=== PATIENT | female | born 1965 | race Caucasian/White ===

== ENCOUNTER 2016-09-14 08:15 | Emergency (ER) | payer OTHER ==
[~2016-09-14] VITALS: Ht 167.6 cm; Wt 82.5 kg
[2016-09-14 09:20] LABS: PLATELET COUNT 261 x10^3mcL (130-400)
[2016-09-14 09:26] LABS: BASOPHIL % 0 % (0-2); RED CELL DISTRIBUTION WIDTH 15.7 % (11.5-14.5)
[2016-09-14 09:30] LABS: CARBON DIOXIDE 28.2 mmol/L (21-32); CREATININE SERUM 1.3 mg/dL (0.6-1.0); POTASSIUM SERUM 3.8 mmol/L (3.5-5.1)
[2016-09-14 09:34] LABS: ALBUMIN 4.6 g/dL (3.4-5.0)
[2016-09-14 09:35] LABS: TOTAL PROTEIN, SERUM 8.8 g/dL (6.4-8.2)
[2016-09-14 10:12] LABS: UA SPECIFIC GRAVITY >=1.030 (1.005-1.035); microscopic required? YES; urine erythrocyte NEGATIVE (NEGATIVE)
[2016-09-14 11:53] VITALS: BP 122/77
== END 2016-09-14 12:10 | disposition home or self-care (01) ==
LOC: ED 08:15
PROVIDERS: Emergency Medicine
DX: N18.3 Chronic kidney disease, stage 3 (moderate) (principal); E78.00 Pure hypercholesterolemia, unspecified; K82.8 Other specified diseases of gallbladder; Z90.710 Acquired absence of both cervix and uterus; Z85.42 Personal history of malignant neoplasm of other parts of uterus; Z92.21 Personal history of antineoplastic chemotherapy
CPT/HCPCS: 83880; J1885; J7030

== ENCOUNTER 2017-03-26 15:05 | Inpatient (IN) | payer OTHER ==
[~2017-03-26] VITALS: Ht 163.8 cm; Wt 81.3 kg
[2017-03-26 16:18] LABS: BASOPHIL % 0.7 % (0-2); PLATELET COUNT 468 x10^3mcL (130-400); RED CELL DISTRIBUTION WIDTH 15.1 % (11.5-14.5)
[2017-03-26 16:25] LABS: CALCIUM 9.3 mg/dL (8.5-10.1); CARBON DIOXIDE 26.1 mmol/L (21-32); CHLORIDE SERUM 102 mmol/L (98-107); CREATININE SERUM 0.8 mg/dL (0.6-1.0); GFR1 > 60 mL/min; GLUCOSE SERUM 94 mg/dL (74-106); POTASSIUM SERUM 3.1 mmol/L (3.5-5.1); SODIUM SERUM 140 mmol/L (136-145)
[2017-03-26 16:36] LABS: ALKALINE PHOSPHATASE 238 U/L (46-116); ALT/SGPT 31 U/L (14-59); AST/SGOT 30 U/L (15-37); BILIRUBIN TOTAL 0.47 mg/dL (0.20-1.00); TOTAL PROTEIN, SERUM 7.7 g/dL (6.4-8.2)
[2017-03-26 16:40] LABS: ALBUMIN 2.9 g/dL (3.4-5.0)
[2017-03-26 17:37] LABS: CK-MB 1.1 ng/mL (0-3.6)
[2017-03-26] MEDS ORDERED: CIPRO500 MG PO (18:15)
[2017-03-26] MEDS ORDERED: PHECLUD (18:15)
[2017-03-26] MEDS ORDERED: IBUPROFEN IB100 MG (18:15)
[2017-03-26 19:40] LABS: T3 TOTAL 1.05 ng/mL
[2017-03-26 19:41] LABS: MAGNESIUM 1.9 mg/dL (1.8-2.4); PHOSPHOROUS 2.7 mg/dL (2.5-4.9)
[2017-03-26 19:56] LABS: FREE T4 1.51 ng/dL (0.76-1.46); FREE THYROXINE INDEX 4.3 ug/dL (1.4-4.5); T4(THYROXINE) 12.9 ug/dL (4.7-13.3)
[2017-03-26 20:00] VITALS: BP 138/74
[2017-03-26 20:02] VITALS: Ht 163.8 cm; Wt 81.3 kg
[2017-03-26 20:05] VITALS: BP 138/74
[2017-03-26 20:47] VITALS: BP 138/74
[2017-03-26 21:19] LABS: RED BLOOD CELLS 3.93 M/mm3 (4.10-5.10)
[2017-03-26 21:30] LABS: IRON 27 ug/dL (50-170); TOTAL IRON BINDING CAPACITY 177 ug/dL (250-450)
[2017-03-27 05:53] VITALS: BP 136/70
[2017-03-27 06:43] LABS: BASOPHIL % 0.2 % (0-2)
[2017-03-27 06:45] LABS: PLATELET COUNT 420 x10^3mcL (130-400); RED CELL DISTRIBUTION WIDTH 14.8 % (11.5-14.5)
[2017-03-27 06:48] LABS: CHLORIDE SERUM 105 mmol/L (98-107); CREATININE SERUM 0.8 mg/dL (0.6-1.0); GFR1 > 60 mL/min; GLUCOSE SERUM 85 mg/dL (74-106); HDL CHOLESTEROL 48 mg/dL (40-60); MAGNESIUM 1.9 mg/dL (1.8-2.4); PHOSPHOROUS 2.4 mg/dL (2.5-4.9); POTASSIUM SERUM 3.7 mmol/L (3.5-5.1); SODIUM SERUM 142 mmol/L (136-145); TRIGLYCERIDES 139 mg/dL (<150)
[2017-03-27 07:05] LABS: CHOLESTEROL 210 mg/dL (<200); CHOLESTEROL/HDL RATIO 4.4
[2017-03-27 09:10] VITALS: BP 135/78
[2017-03-27 14:51] LABS: microscopic required? NO
[2017-03-27 14:57] LABS: UA SPECIFIC GRAVITY 1.015 (1.005-1.035); urine erythrocyte NEGATIVE (NEGATIVE)
[2017-03-27 15:20] LABS: AMPHETAMINE QUAL UR NONE DETECTED (NEG <=1000)
[2017-03-27 16:46] VITALS: BP 146/79
[2017-03-27 19:30] VITALS: BP 106/67
[2017-03-28] VITALS (14 sets, daily range): BP systolic 101–144; BP diastolic 65–89
[2017-03-28 07:13] LABS: BASOPHIL % 0.1 % (0-2)
[2017-03-28 07:14] LABS: PLATELET COUNT 429 x10^3mcL (130-400); RED CELL DISTRIBUTION WIDTH 15.1 % (11.5-14.5)
[2017-03-28 07:46] LABS: CALCIUM 9.3 mg/dL (8.5-10.1); CARBON DIOXIDE 26.3 mmol/L (21-32); CHLORIDE SERUM 105 mmol/L (98-107); CREATININE SERUM 0.8 mg/dL (0.6-1.0); GFR1 > 60 mL/min; GLUCOSE SERUM 97 mg/dL (74-106); MAGNESIUM 1.7 mg/dL (1.8-2.4); PHOSPHOROUS 3.1 mg/dL (2.5-4.9); POTASSIUM SERUM 3.7 mmol/L (3.5-5.1); SODIUM SERUM 142 mmol/L (136-145)
[2017-03-29 05:33] LABS: BASOPHIL % 0.3 % (0-2)
[2017-03-29 05:39] VITALS: BP 119/73
[2017-03-29 05:42] LABS: PLATELET COUNT 404 x10^3mcL (130-400); RED CELL DISTRIBUTION WIDTH 15.3 % (11.5-14.5)
[2017-03-29 05:49] LABS: CALCIUM 9.1 mg/dL (8.5-10.1); CARBON DIOXIDE 26.1 mmol/L (21-32); CHLORIDE SERUM 102 mmol/L (98-107); CREATININE SERUM 0.8 mg/dL (0.6-1.0); GFR1 > 60 mL/min; GLUCOSE SERUM 94 mg/dL (74-106); MAGNESIUM 1.6 mg/dL (1.8-2.4); PHOSPHOROUS 3.3 mg/dL (2.5-4.9); POTASSIUM SERUM 3.7 mmol/L (3.5-5.1); SODIUM SERUM 140 mmol/L (136-145)
[2017-03-29 08:00] VITALS: BP 155/91
[2017-03-29] MEDS ORDERED: LIPI10 PO (09:57)
[2017-03-29 13:00] VITALS: BP 148/88
[2017-03-29 17:20] VITALS: BP 130/77
[2017-03-29 20:58] VITALS: BP 151/78
[2017-03-30 05:25] VITALS: BP 140/84
[2017-03-30 07:05] LABS: BASOPHIL % 0.3 % (0-2)
[2017-03-30 07:12] LABS: CALCIUM 9.3 mg/dL (8.5-10.1); CARBON DIOXIDE 29.1 mmol/L (21-32); CHLORIDE SERUM 100 mmol/L (98-107); CREATININE SERUM 0.7 mg/dL (0.6-1.0); GFR1 > 60 mL/min; GLUCOSE SERUM 82 mg/dL (74-106); MAGNESIUM 1.8 mg/dL (1.8-2.4); PHOSPHOROUS 2.9 mg/dL (2.5-4.9); POTASSIUM SERUM 3.9 mmol/L (3.5-5.1); SODIUM SERUM 139 mmol/L (136-145)
[2017-03-30 07:18] LABS: PLATELET COUNT 433 x10^3mcL (130-400); RED CELL DISTRIBUTION WIDTH 15.3 % (11.5-14.5)
[2017-03-30 10:11] VITALS: BP 121/82
[2017-03-30 13:20] VITALS: BP 130/78
[2017-03-30 17:14] VITALS: BP 141/73
[2017-03-30 17:39] VITALS: BP 141/73
[2017-03-30 17:40] VITALS: BP 141/73
== END 2017-03-30 18:48 | disposition home or self-care (01) | DRG 180 ==
LOC: ED 15:05 → DU 18:28
PROVIDERS: Emergency Medicine; Family Medicine
PROC: 0BBK3ZX Excision of Right Lung, Percutaneous Approach, Diagnostic (ICD-10-PCS; principal; 2017-03-28)
DX: C78.02 Secondary malignant neoplasm of left lung (principal); E43 Unspecified severe protein-calorie malnutrition; M84.58XA Pathological fracture in neoplastic disease, other specified site, initial encounter for fracture; J90 Pleural effusion, not elsewhere classified; C78.01 Secondary malignant neoplasm of right lung; E83.39 Other disorders of phosphorus metabolism; E87.6 Hypokalemia; D64.9 Anemia, unspecified; Z68.31 Body mass index [BMI] 31.0-31.9, adult; Z85.42 Personal history of malignant neoplasm of other parts of uterus; Z90.710 Acquired absence of both cervix and uterus; E66.01 Morbid (severe) obesity due to excess calories; C80.1 Malignant (primary) neoplasm, unspecified
CPT/HCPCS: 32405; 83880; 84439; 85378; J1644; J1956; J2001; J7030; J7042; J7620; Q0092; Q9967